=== PATIENT | male | born 1985 | race Hispanic/Latino ===

== ENCOUNTER 2017-06-14 23:03 | Inpatient (IN) | payer BC ==
[2017-06-15] MEDS ORDERED: Sodium Chloride 0.9% 1,000 ML ONE (00:16)
[2017-06-15] MEDS ORDERED: Sodium Chloride 0.9% 1,000 ML IV ONE ×2 (00:19→00:20)
[2017-06-15] MEDS ORDERED: Iohexol 240 (50 ml) PO ONE (00:21)
--- NOTE | 2017-06-15 00:26 | C.PDOC ---
History Of Present Illness 31 year old male presents to the emergency department with complaints of abdominal pain persisting for the past four days. Patient was seen by his PMD, Dr. Bar and was sent to the ED to rule out possible appendicitis. Patient confirms nausea and vomiting. Patient states that his last bowel movement was three days ago. Chief Complaint (Nursing): Abdominal Pain History Per: Patient History/Exam Limitations: no limitations Onset/Duration Of Symptoms: Days (4) Current Symptoms Are (Timing): Still Present Associated Symptoms: Nausea, Vomiting Last Bowel Movement: Days Ago (3) Past Medical History Reviewed: Historical Data, Nursing Documentation, Vital Signs Vital Signs: Last Vital Signs Temp 99.1 F 06/15/17 04:53 Pulse 108 H 06/15/17 04:53 Resp 18 06/15/17 04:53 BP 117/72 06/15/17 04:53 Pulse Ox 100 06/15/17 04:53 - Medical History PMH: No Chronic Diseases Surgical History: No Surg Hx Family History: States: No Known Family Hx - Social History Hx Alcohol Use: Yes Hx Substance Use: No - Immunization History Hx Tetanus Toxoid Vaccination: Yes Hx Influenza Vaccination: Yes Hx Pneumococcal Vaccination: No Review Of Systems Except As Marked, All Systems Reviewed And Found Negative. Gastrointestinal: Positive for: Nausea, Vomiting, Abdominal Pain Physical Exam - Physical Exam Appears: Non-toxic, In Acute Distress (mild) Cardiovascular: Rhythm Regular Respiratory: Normal Breath Sounds Gastrointestinal/Abdominal: Soft, Tenderness (to RUQ, mild tenderness to LUQ, no tenderness to RLQ. ), No Guarding, No Rebound ED Course And Treatment - Laboratory Results Result Diagrams: 06/15/17 00:15 06/15/17 00:15 O2 Sat by Pulse Oximetry: 98 (RA) Pulse Ox Interpretation: Normal Medical Decision Making Medical Decision Making: Plan: CT Abdomen and Pelvis CMP Lipase Bentyl 20mg IM Omnipaque 50ml PO NaCl IV Fluids Zofran 4mg IVP Urinalysis Disposition Discussed With : Celestino Bar Doctor Will See Patient In The: Hospital Counseled Patient/Family Regarding: Diagnosis - Disposition Referrals: Celestino Bar MD [Primary Care Provider] - Disposition: HOSPITALIZED Disposition Time: 05:48 Condition: STABLE Forms: [facility] ([place]) - POA Present On Arrival: None - Clinical Impression Clinical Impression: Abdominal pain, Gall bladder disease - Scribe Statement The provider has reviewed the documentation as recorded by the Scribe (Kaveh Montesinos) Provider Attestation: All medical record entries made by the Scribe were at my direction and personally dictated by me. I have reviewed the chart and agree that the record accurately reflects my personal performance of the history, physical exam, medical decision making, and the department course for this patient. I have also personally directed, reviewed, and agree with the discharge instructions and disposition.
[2017-06-15] MEDS ORDERED: Iohexol 240 (50 ml) ONE (00:31)
[2017-06-15 00:32] LABS: ALB/GLOB RATIO 1.4 (1.0-2.1); BLOOD UREA NITROGEN 10 mg/dL (9-20); CALCIUM 9.1 mg/dl (8.6-10.4); GFR AFRICAN-AMERICAN > 60; GFR NON-AFRICAN AMERICAN > 60; LIPASE 317 U/L (23-300)
[2017-06-15 00:38] LABS: URINE BACTERIA RARE (<OCC); URINE BILIRUBIN 1+ (NEGATIVE); URINE CLARITY Hazy (Clear); URINE COLOR Amber (YELLOW); URINE GLUCOSE (UA) NORMAL (Normal); URINE LEUKOCYTE ESTERASE NEG Leu/uL (Negative); URINE PROTEIN 2+ mg/dL (NEGATIVE)
[2017-06-15 00:39] LABS: URINE BLOOD NEGATIVE (NEGATIVE)
[2017-06-15 00:49] LABS: ALT/SGPT 3997 U/L (21-72); AST/SGOT 5066 U/L (17-59)
[2017-06-15] MEDS ORDERED: Iodixanol 320 MG/ML 100 ML BOTTLE IV ONE (01:25)
[2017-06-15 01:55] LABS: BASO % 0.2 % (0.0-2.0); EOS % 0.4 % (0.0-4.0); HEMOGLOBIN 17.5 g/dL (12.0-18.0); LYMPH # 0.6 K/uL (1.0-4.3); LYMPH % 5.5 % (20.0-40.0); MEAN CELL VOLUME 92.5 fL (80.0-94.0); MEAN CORPUSCULAR HEMOGLOBIN 32.2 pg (27.0-31.0); MEAN CORPUSCULAR HGB CONC 34.8 g/dL (33.0-37.0); MEAN PLATELET VOLUME 8.2 fL (7.2-11.7); MONO # 0.1 K/uL (0.0-0.8); MONO % 1.4 % (0.0-10.0); NEUT # 9.6 K/uL (1.8-7.0); NEUT % 92.5 % (50.0-75.0); NRBC % 0.2 % (0.0-2.0); PLATELET COUNT 104 K/uL (130-400); RBC 5.44 Mil/uL (4.40-5.90); RED CELL DISTRIBUTION WIDTH 12.9 % (11.5-14.5); WHITE BLOOD COUNT 10.4 K/uL (4.8-10.8)
[2017-06-15 01:56] LABS: LYMPHOCYTE 7 % (20-40); MONOCYTE 5 % (0-10); NEUTROPHIL 88 % (50-75); PLATELET ESTIMATE SLIGHTLY DECREASED (NORMAL); TOTAL CELLS COUNTED 100
--- NOTE | 2017-06-15 04:09 | CT ---
EXAM: CT Abdomen and Pelvis With Intravenous Contrast CLINICAL HISTORY: 31 years old, male; Pain; Abdominal pain; Additional info: Abd pain TECHNIQUE: Axial computed tomography images of the abdomen and pelvis with intravenous contrast. All CT scans at this facility use one or more dose reduction techniques, viz.: automated exposure control; ma/kV adjustment per patient size (including targeted exams where dose is matched to indication; i.e. head); or iterative reconstruction technique. Coronal and sagittal reformatted images were created and reviewed. CONTRAST: 100 mL of [id number] administered intravenously. COMPARISON: No relevant prior studies available. FINDINGS: Lung bases: No acute findings. ABDOMEN: Liver: Fatty infiltration. Gallbladder and bile ducts: No calcified gallstones. Gallbladder wall thickening. No significant ductal dilation. Pancreas: No ductal dilation. No mass. Spleen: No splenomegaly. Adrenals: No mass. Kidneys and ureters: No mass. No hydronephrosis. Stomach and bowel: Few segmental areas of mild mural thickening vs underdistention of large bowel. No associated inflammatory stranding. No obstruction. PELVIS: Appendix: Normal caliber. No inflammation. Bladder: Unremarkable. Reproductive: Unremarkable as visualized. ABDOMEN and PELVIS: Intraperitoneal space: No significant fluid collection. No free air. Bones/joints: Chronic L5 pars defects with anterolisthesis. Mild degenerative changes of spine. No acute fracture. Soft tissues: Minimal right gynecomastia. Vasculature: Unremarkable. No aneurysm. Lymph nodes: No pathologically enlarged lymph nodes. IMPRESSION: 1. Gallbladder wall thickening. Recommend ultrasound. 2. Mild colitis versus underdistention. Clinical correlation is needed. 3. Incidental/non-acute findings are described above.
[2017-06-15 06:24] LABS: BARBITURATES, UR NEGATIVE (NEGATIVE); BENZODIAZEPINES, UR NEGATIVE (NEGATIVE); OPIATES, UR NEGATIVE (NEGATIVE); PHENCYCLIDINE, UR NEGATIVE (NEGATIVE)
--- NOTE | 2017-06-15 06:54 | US ---
EXAM: US Abdomen Limited, Right Upper Quadrant CLINICAL HISTORY: 31 years old, male; Pain; Abdominal pain; Epigastric; Additional info: Ruq abd pain TECHNIQUE: Real-time ultrasound of the right upper quadrant with image documentation. COMPARISON: CT - ABD PELVIS PO IV CONTRAST 2017-06-15 02:55 FINDINGS: Liver: Fatty infiltration. No mass. No intrahepatic ductal dilatation. Gallbladder: No gallstones. 0.6 cm wall thickness. Trace pericholecystic fluid. Positive Watson's sign. Common bile duct: No dilatation. No stones. Pancreas: Unremarkable as visualized. Right kidney: Normal echogenicity. No hydronephrosis. IMPRESSION: 1. Gallbladder wall thickening with positive Watson's sign. Clinical correlation is needed. 2. Incidental/non-acute findings are described above.
[2017-06-15] MEDS: Folic Acid 1 MG, Thiamine 100 MG, Multivitamin (MVI) 10 ML in Dextrose 5% In Water 1,00... IV SCH ×2 (06:55→22:10)
[2017-06-15] MEDS: Dextrose 5%/0.45% NS 1,000 ML IV SCH (22:42)
--- NOTE | 2017-06-16 01:18 | CON ---
DATE: PSYCHIATRIC CONSULTATION CHIEF COMPLAINT AND REASON FOR CONSULTATION: The patient was referred to Dr. Bar as the patient has a history of alcoholism. The patient reports that he was drinking 7 day alcohol binge. HISTORY OF PRESENT ILLNESS: This is a case of 31-year-old male of [place] descent. The patient came to the emergency room complaining of abdominal pain. The patient was referred by Dr. Bar for possible appendicitis. He was having nausea and vomiting. 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 He states that he took some 7 days off and he started to drink and he was not eating. The patient was admitted here also because of possible gallbladder disease. The patient had some tests done, which had an ultrasound of the abdomen that showed the following findings: 1. Gallbladder wall thickening with positive Watson sign as well as CAT scan of the abdomen showed the following findings. 2. Gallbladder wall thickening as well as mild colitis. The patient was seen today. He reports the pain was much better and was regretful that he drank too much. He states that he will not drink again, and he said he was not drinking for two years. PAST PSYCHIATRIC HISTORY: Denies any. PAST MEDICAL HISTORY: No active medical problems. ALLERGIES: NO KNOWN ALLERGIES. DRUG AND ALCOHOL HISTORY: He stated that he has history of drinking off and on, but was sober for 2 years. PSYCHOSOCIAL HISTORY: The patient owns a gym. MEDICATIONS: List of current medications include Librium 50 mg p.o. every 4 hours p.r.n. as well as folic acid, multivitamins. PHYSICAL EXAMINATION: VITAL SIGNS: Temperature 98, pulse 106, blood pressure 128/95, respirations 18, oxygen saturation 98%. LABORATORY DATA: Review of his labs. The patient has markedly elevated liver function tests. Total bilirubin is 7.4, AST is 5066 and ALT is 3997. Total creatinine kinase is 257. Urinalysis, positive for protein, +1 for bilirubin. Urine drug screen is negative. BAL was not done. REVIEW OF SYSTEMS: GENERAL: He is alert and oriented x3, seen in his room. Seems to be not in pain, not in acute respiratory distress. He was seen at 9 a.m. in the emergency room. SKIN: No pruritus. HEENT: No headaches. No dizziness. NECK: Supple. RESPIRATORY: No dyspnea. CARDIOVASCULAR: No chest pain. GASTROINTESTINAL: The patient is having no nausea, no vomiting. He said his abdominal pain is much better. EXTREMITIES: No tremors. MUSCULOSKELETAL: Feels weak. NEUROLOGIC: Alert and oriented x3. GENITOURINARY: No urinary problems. MENTAL STATUS EXAMINATION: Well developed male. Muscular built. Oriented x3. Mood is anxious at times. Affect is reactive. Speech is spontaneous. Thought process is coherent. Thought content, no overt psychosis or suicidal ideation. Attention and memory seemed to be fair. Insight and judgment fair. Impulse control is fair. IMPRESSION: History of alcohol abuse as well as gallbladder disease, rule out pancreatitis. PLAN AND RECOMMENDATIONS: The patient is seen. Medications reviewed. We will continue the Librium 50 mg every 4 hours p.r.n. Continue present management as ordered. Continue treatment plan as outlined. The patient was advised to stay sober from alcohol. Oliver Day MD MTDVladislav
[2017-06-16 08:13] LABS: INR 2.9
[2017-06-16 08:22] LABS: PROTHROMBIN TIME 31.7 SECONDS (9.7-12.2)
[2017-06-16 08:27] LABS: ALB/GLOB RATIO 1.3 (1.0-2.1); ALBUMIN 3.2 g/dL (3.5-5.0); BLOOD UREA NITROGEN 13 mg/dL (9-20); GFR AFRICAN-AMERICAN > 60; GFR NON-AFRICAN AMERICAN > 60
[2017-06-16] MEDS: Folic Acid 1 MG, Thiamine 100 MG, Multivitamin (MVI) 10 ML in Dextrose 5% In Water 1,00... IV SCH (08:27)
[2017-06-16] MEDS: Dextrose 5%/0.45% NS 1,000 ML IV SCH ×3 (08:28→21:47)
[2017-06-16 08:58] LABS: ALT/SGPT 10907 U/L (21-72)
[2017-06-16 09:22] LABS: AST/SGOT 14254 U/L (17-59)
--- NOTE | 2017-06-16 10:01 | HP ---
CHIEF COMPLAINT: Abdominal pain, weakness, and chest wall pain. HISTORY OF PRESENT ILLNESS: This is a young 31-year-old white male, who is an alcoholic. He drinks largely. He has been anxious and depressed, and he has been drinking. He has been taking some unknown anxiety and sleeping medication prescribed to him by a psychiatrist. young, healthy male with no limitation in activities of daily living with no past medical history, but he was drinking for last 1 to 2 weeks in large quantity over and over. Along with that, the patient had generalized weakness, tiredness, anorexia, malaise, and fatigue. He was having palpitations, weakness, dizziness, and he was complaining to me with abdominal pain in right lower quadrant, epigastric area, in left lower chest wall. Along with that, he had nausea, no vomiting. He denies any diarrhea. He denies any hemoptysis, melena, hematochezia. He denies any hematuria, pyuria. He denies any sneezing, itchy eyes, itchy nose. He denies any cough, sore throat. He denies any history of hepatitis C. He denies any history of trauma, fall, loss of consciousness, and no history of seizure like activity. PAST MEDICAL HISTORY: Nothing significant. SOCIAL HISTORY: He smokes, he drinks. He denies drugs. CURRENT MEDICATIONS: Unknown anxiety medicine. ALLERGIES: UNKNOWN ALLERGIES. PHYSICAL EXAMINATION: GENERAL: A young male, in distress with weakness. VITAL SIGNS: Blood pressure 128/95, pulse 106, respiratory rate 18, temperature 98. SKIN: Dry, poor turgor. HEENT: Atraumatic and normocephalic. Negative pallor. Negative jaundice. Extraocular movements are intact. NECK: Supple. No JVD. No lymph nodes. No thyromegaly. No carotid bruits. CHEST WALL: Bilateral symmetrical expansion. No masses. . LUNGS: Clear. No rales, no rhonchi. CVS: S1 and S2 regular. No heave noted. ABDOMEN: Soft and nontender. Bowel sounds are present. There is right lower quadrant tenderness. No guarding, no rebound, no rigidity. RECTAL AND PELVIC: Negative. EXTREMITIES: No clubbing, cyanosis, or edema. CENTRAL NERVOUS SYSTEM: Awake, alert and oriented x3. ASSESSMENT: 1. Acute hepatitis, most likely, it is alcohol induced hepatitis. It could be a combination of alcohol induced plus medications. 2. Anxiety and depression. 3. Thrombocytopenia. PLAN: Admit. Detailed orders written. Seen and examined. Celestino Bar MD
--- NOTE | 2017-06-16 11:16 | PN ---
DATE: 06/16/2017 LOCATION: 370, bed B. SUBJECTIVE: This is a 31-year-old male seen and examined in rounds early this morning without any reported active bleeding, with less abdominal distention and pain. The entire chart is reviewed including but not limited to the most recent lab and radiology study results, current and the previous medication list, current and the previous medical events. Case discussed with the staff in the floor and the patient tolerated some oral intake, but no reported chest pain, palpitations, or evidence of active bleeding. CAT scan of the abdomen and pelvis as well as ultrasound report seen. Today's lab is still pending, but yesterday's lab showed excessive increase of ALT, but more increase of AST and elevated total creatine kinase, lipase was 317. PHYSICAL EXAMINATION: GENERAL: A 31-year-old male. VITAL SIGNS: Temperature of 99.3, heart rate 84, respiratory rate 20 to 22, blood pressure of 136/78. HEENT: Mildly pale, dry, oral mucous membranes. Nonicteric sclerae. LUNGS: Few scattered crepitations. Decreased air entry at bases. HEART: Positive S1 and S2. ABDOMEN: Soft, with mild generalized tenderness. No mass or organomegaly. No rebound tenderness or guarding. EXTREMITIES: Without edema, clubbing, or cyanosis. NEUROLOGIC: No reported new neurological deficits, sensory or motor. The patient was seen by the psychiatric consult, and his recommendation is appreciated. IMPRESSION: 1. Alcoholism. 2. Acute alcoholic hepatitis. 3. Acute alcoholic pancreatitis. 4. Re-exacerbation of peptic ulcer disease. SUGGESTION: 1. Continue current management. 2. Follow up on liver function test with hepatitis profile. 3. Anti-reflux measures. 4. Proton pump inhibitors. 5. Further evaluation and recommendation to follow. Luis Manuel Mcginnis MD
--- NOTE | 2017-06-16 15:24 | NM ---
PROCEDURE: Nuclear Medicine Hepatobiliary Scan HISTORY: cholecystitis COMPARISON: June 14, 2017. Abdominal ultrasound TECHNIQUE: 7.9 mCi of technetium 99m Mebrofenin was administered intravenously. Planar images of the abdomen were obtained at 5 min intervals to 60 mins. Delayed images were also obtained. FINDINGS: LIVER: Timely and homogenous uptake. COMMON BILE DUCT: identified at 25 mins. GALLBLADDER: identified at 25 mins. SMALL BOWEL: Identified at 65 mins. IMPRESSION: Normal Hepatobiliary Scan. The cystic duct is patent.
--- NOTE | 2017-06-17 08:35 | CON ---
DATE: 06/15/2017 REQUESTING PHYSICIAN: Celestino Bar MD I was called for a GI consultation by the admitting medical team as well as by the ER staff. The patient is seen and fully examined in the emergency room on 06/15/2017. The entire chart is reviewed including but not limited to the most recent lab and radiology study results, current and the previous medication list, current and the previous medical events, allergies to medication list, as well as all the available current and the previous medical records. Case discussed at length with the ER MD as well as the admitting medical team. This is a 31-year-old male who was admitted to the hospital through the emergency room due to severe abdominal pain for the last 3-4 days with persistent nausea and recurrent vomiting as well as dyspepsia with constipation, last bowel movement reported to be about 3-4 days ago. It has to be mentioned that the patient had been excessively drinking alcohol for the last 7-10 days on a daily basis. PAST MEDICAL HISTORY: Including mainly: 1. Alcoholism. 2. Peptic ulcer disease. FAMILY HISTORY: Unrelated to specific GI disorder. CURRENT MEDICATIONS: Medication list post admission reviewed. ALLERGIES TO MEDICATIONS: UNCLEAR. SOCIAL HISTORY: Positive for alcohol intake and cigarette smoking on and off. Initial blood workup showed thrombocytopenia of 104. Excessive increase of AST and ALT. Initial CAT scan of the abdomen and pelvis done, report is seen. PHYSICAL EXAMINATION: GENERAL: A 31-year-old male, appears to be somewhat awake, alert, oriented, complaining of abdominal pain. VITAL SIGNS: Temperature of 99.1, pulse of 104, respiratory rate 18 to 20, blood pressure 122/74. HEENT: Showed dry oral mucoid membranes. Bilateral icteric sclerae. LYMPH NODES: No lymphadenitis or lymphadenopathy. LUNGS: Clear. Breathing sounds are present bilaterally. HEART: Positive S1 and S2. ABDOMEN: Soft with slight distention and diffuse tenderness. No mass or organomegaly. No rebound tenderness or guarding. EXTREMITIES: Without significant edema, clubbing, or cyanosis. NEUROLOGIC: No reported new neurological deficits, sensory or motor. No reported focal deficits. It has to be mentioned that the patient's lipase and amylase levels were found to be elevated at the time of the admission. IMPRESSION: 1. Alcoholism. 2. Acute chemical hepatitis, most likely secondary to acute alcoholic hepatitis. 3. Acute pancreatitis secondary to alcoholism. 4. Re-exacerbation of peptic ulcer disease. 5. Excessive elevation of AST and ALT secondary to above. SUGGESTIONS: 1. Agree with your plan. 2. Rehydration. 3. Zofran IV. 4. Proton pump inhibitors. 5. Keep the patient n.p.o. for now. 6. Repeat serum lipase and amylase levels as well as liver function tests at a.m. 7. Hepatitis profile. 8. Monospot. 9. No aggressive GI workup in the meantime and close observation to follow. 10. I have been suggested the patient to be admitted to the Intensive Care Unit, still awaiting Customer Quality Specialist for full evaluation of this patient. 11. Case is to be discussed with the admitting MD. Thank you for letting me participate in your patient's case management. Further recommendation to follow. Luis Manuel Mcginnis MD
[2017-06-17 08:58] VITALS: RESP 20
--- NOTE | 2017-06-17 09:02 | CP.PCM.PN ---
Subjective - Date & Time of Evaluation Date of Evaluation: 06/16/17 Time of Evaluation: 18:00 - Subjective Subjective: PT SEEN AND EXAMINED, IS IMPROVING, LIVER ENZYMES ARE GETTING BETTER, PT IS LESS ANXIOUS AND FELLING BETTER Objective - Vital Signs/Intake and Output Vital Signs (last 24 hours): Temp Pulse Resp BP Pulse Ox 98.2 F 76 20 131/82 96 06/17/17 08:56 06/17/17 08:56 06/17/17 08:56 06/17/17 08:56 06/17/17 08:56 Intake and Output: 06/17/17 06/17/17 06:59 18:59 Intake Total 940 Balance 940 - Medications Medications: Current Medications Chlordiazepoxide (Librium) 50 mg PO Q4H PRN PRN Reason: Symptoms of alcohol withdrawl Last Admin: 06/16/17 09:54 Dose: 50 mg Folic Acid 1 mg/ Thiamine HCl 100 mg/ Multivitamins/Vitamin C 10 ml/ Dextrose 1 ,011.2 mls @ 80 mls/hr IV Q24H [facility] Last Admin: 06/16/17 08:27 Dose: 80 mls/hr Dextrose/Sodium Chloride (Dextrose 5%/0.45% Ns 1000 Ml) 1,000 mls @ 100 mls/hr IV .Q10H [facility] Last Admin: 06/16/17 21:47 Dose: 100 mls/hr Nicotine (Nicoderm Cq) 1 patch TD DAILY [facility] Last Admin: 06/16/17 09:54 Dose: 1 patch Phytonadione (Vitamin K Tab) 5 mg PO DAILY [facility] Stop: 06/19/17 11:46 Last Admin: 06/16/17 15:53 Dose: 5 mg Pneumococcal Polyvalent Vaccine (Pneumovax 23 Vaccine) 0.5 ml IM .ONCE ONE Stop: 06/18/17 10:01 - Labs Labs: 06/15/17 00:15 06/16/17 08:01 PT 31.7 SECONDS (9.7-12.2) H* 06/16/17 08:01 INR 2.9 06/16/17 08:01 APTT 34 SECONDS (21-34) 06/16/17 08:01 - Constitutional Appears: No Acute Distress - Head Exam Head Exam: ATRAUMATIC, NORMAL INSPECTION, NORMOCEPHALIC - Eye Exam Eye Exam: EOMI, Normal appearance, PERRL Pupil Exam: NORMAL ACCOMODATION, PERRL - Respiratory Exam Respiratory Exam: Clear to Ausculation Bilateral, NORMAL BREATHING PATTERN - Cardiovascular Exam Cardiovascular Exam: REGULAR RHYTHM, +S1, +S2. absent: Murmur - GI/Abdominal Exam GI & Abdominal Exam: Soft, Normal Bowel Sounds. absent: Tenderness Assessment and Plan (1) Abdominal pain Status: Acute (2) Acute alcoholic hepatitis Status: Acute
--- NOTE | 2017-06-17 09:02 | CP.PCM.PN ---
Subjective - Date & Time of Evaluation Date of Evaluation: 06/17/17 Time of Evaluation: 18:00 - Subjective Subjective: PT SEEN AND EXAMINED, IS DOING WELL,LFTS ARE IMPROVING Objective - Vital Signs/Intake and Output Vital Signs (last 24 hours): Temp Pulse Resp BP Pulse Ox 98.2 F 76 20 131/82 96 06/17/17 08:56 06/17/17 08:56 06/17/17 08:56 06/17/17 08:56 06/17/17 08:56 Intake and Output: 06/17/17 06/17/17 06:59 18:59 Intake Total 940 Balance 940 - Medications Medications: Current Medications Chlordiazepoxide (Librium) 50 mg PO Q4H PRN PRN Reason: Symptoms of alcohol withdrawl Last Admin: 06/16/17 09:54 Dose: 50 mg Folic Acid 1 mg/ Thiamine HCl 100 mg/ Multivitamins/Vitamin C 10 ml/ Dextrose 1 ,011.2 mls @ 80 mls/hr IV Q24H [facility] Last Admin: 06/16/17 08:27 Dose: 80 mls/hr Dextrose/Sodium Chloride (Dextrose 5%/0.45% Ns 1000 Ml) 1,000 mls @ 100 mls/hr IV .Q10H [facility] Last Admin: 06/16/17 21:47 Dose: 100 mls/hr Nicotine (Nicoderm Cq) 1 patch TD DAILY [facility] Last Admin: 06/16/17 09:54 Dose: 1 patch Phytonadione (Vitamin K Tab) 5 mg PO DAILY [facility] Stop: 06/19/17 11:46 Last Admin: 06/16/17 15:53 Dose: 5 mg Pneumococcal Polyvalent Vaccine (Pneumovax 23 Vaccine) 0.5 ml IM .ONCE ONE Stop: 06/18/17 10:01 - Labs Labs: 06/15/17 00:15 06/16/17 08:01 PT 31.7 SECONDS (9.7-12.2) H* 06/16/17 08:01 INR 2.9 06/16/17 08:01 APTT 34 SECONDS (21-34) 06/16/17 08:01 - Constitutional Appears: No Acute Distress - Head Exam Head Exam: ATRAUMATIC, NORMAL INSPECTION, NORMOCEPHALIC - Eye Exam Eye Exam: EOMI, Normal appearance, PERRL Pupil Exam: NORMAL ACCOMODATION, PERRL - Respiratory Exam Respiratory Exam: Clear to Ausculation Bilateral, NORMAL BREATHING PATTERN - Cardiovascular Exam Cardiovascular Exam: REGULAR RHYTHM, +S1, +S2. absent: Murmur - GI/Abdominal Exam GI & Abdominal Exam: Soft, Normal Bowel Sounds. absent: Tenderness Assessment and Plan (1) Acute alcoholic hepatitis Assessment & Plan: LFTS ARE GOING DOWN Status: Acute (2) Abdominal pain Status: Acute
[2017-06-17] MEDS: Folic Acid 1 MG, Thiamine 100 MG, Multivitamin (MVI) 10 ML in Dextrose 5% In Water 1,00... IV SCH (10:03)
[2017-06-17 11:39] LABS: HEMOGLOBIN 15.7 g/dL (12.0-18.0); MEAN CELL VOLUME 91.5 fL (80.0-94.0); MEAN CORPUSCULAR HEMOGLOBIN 32.2 pg (27.0-31.0); MEAN CORPUSCULAR HGB CONC 35.2 g/dL (33.0-37.0); MEAN PLATELET VOLUME 7.8 fL (7.2-11.7); RBC 4.87 Mil/uL (4.40-5.90); RED CELL DISTRIBUTION WIDTH 13.1 % (11.5-14.5)
[2017-06-17 11:40] LABS: WHITE BLOOD COUNT 2.9 K/uL (4.8-10.8)
[2017-06-17 11:50] LABS: ALB/GLOB RATIO 1.1 (1.0-2.1); ALBUMIN 2.9 g/dL (3.5-5.0); BLOOD UREA NITROGEN 11 mg/dL (9-20); CALCIUM 8.2 mg/dl (8.6-10.4); GFR AFRICAN-AMERICAN > 60; GFR NON-AFRICAN AMERICAN > 60
[2017-06-17] MEDS ORDERED: POLYETHYLENE GLYCOL 3350 17 GM/Dose PACKET PO ONE (13:00)
[2017-06-17 13:03] LABS: ALT/SGPT 5691 U/L (21-72); AST/SGOT 3123 U/L (17-59)
--- NOTE | 2017-06-17 16:12 | PN ---
DATE: 06/17/2017 LOCATION: 370, bed B. SUBJECTIVE: This is a 31-year-old male seen and examined early in rounds today without significant clinical changes or reported active bleeding, but with jaundice. He was found to have subsequent elevation of liver function test with less abdominal pain. It has to be mentioned that the most recent radiology study results from biliary scan done yesterday was reported to be normal and today's lab is still pending. However, as per yesterday's lab, the patient's PT elevated to 31.7 with excessive increase of AST to 14, 254, ALT 10,907 with total bilirubin 7.2 with total creatine kinase to 257, low albumin 2.3. Today's lab is still pending, and urine screening toxicology test reported to be negative. However, hepatitis profile results are still pending. PHYSICAL EXAMINATION: GENERAL: A 31-year-old male, awake, alert, and oriented with generalized jaundice. VITAL SIGNS: Afebrile with pulse of 72, respiratory rate 20 to 22, blood pressure of 136/80. HEENT: Showed dry oral mucous membrane, bilateral icteric sclerae. LUNGS: Clear. Breathing sounds are present bilaterally. HEART: Positive S1 and S2. ABDOMEN: Soft with mild generalized tenderness. No mass or organomegaly. No rebound tenderness or guarding. EXTREMITIES: Without significant clubbing, cyanosis, or edema. NEUROLOGIC: No reported new neurological deficits, sensory or motor. No reported new focal deficits. IMPRESSION: 1. Alcoholism with evidence of acute alcoholic hepatitis. 2. Acute alcoholic pancreatitis. 3. Re-exacerbation of peptic ulcer disease. SUGGESTION: 1. Continue current management. 2. Rehydration. 3. Due to the elevated total bilirubin, we will get antibody. 4. If there is significant improvement of the patient's liver enzymes, the patient may be transferred to [facility] for further full workup and MRCP to be scheduled. 5. Repeat serum lipase and amylase level. 6. Follow up on viral hepatitis profile, ordered before. 7. Ammonia level. 8. Further recommendation to follow. Luis Manuel Mcginnis MD [facility] # [id number]
[2017-06-17] MEDS ORDERED: Potassium Chloride 20 mEq/15 ml LIQ UD PO STA (17:59)
--- NOTE | 2017-06-17 19:39 | PN ---
DATE: 06/17/2017 SUBJECTIVE: The patient is seen with significant other. The patient is doing much better and also noted a sclera that seems to be icteric. The patient is not complaining of abdominal pain. He is eating well. The patient made aware of his lab result. The patient's AST and ALT are markedly elevated, but much better today. The last levels for AST is 3123 and ALT is 5691. His total bilirubin is still 7.5. Ammonia is 37. The patient is not having any pruritus and was concerned about the icteric sclera. The patient still needs that he wants a 7-day drinking binge. The patient seems to be very remorseful of what he did. The patient also had hepatobiliary scan, nuclear medicine, was done and showed normal hepatobiliary stent. Cystic duct is patent. The patent advised to stop drinking. VITAL SIGNS: Temperature is 98.2, pulse rate is 76, blood pressure is 131/82, respirations 20, oxygen saturation 96%. REVIEW OF SYSTEMS: GENERAL: The patient is alert and oriented x3, seen at this time with his significant other in his room. Talkative. Not confused. SKIN: No pruritus. Not clear. Icteric. HEENT: His sclera is icteric. No headache. NECK: Supple. RESPIRATORY: No dyspnea. CARDIOVASCULAR: No chest pain. GASTROINTESTINAL: The patient is able to eat. No nausea, no vomiting. EXTREMITIES: Moving extremities and ambulatory. MUSCULOSKELETAL: Feels weak. NEUROLOGIC: Alert and oriented x3. GENITOURINARY: No urinary problems. MENTAL STATUS EXAMINATION: Very muscular male, looks stated age. Seen in his room, calm. Affect is reactive. Speech is spontaneous. Thought process is coherent. Thought content, no overt psychosis. No suicidal or homicidal ideation. The patient seems to be remorseful of his drinking patten. He said he will stop drinking. No psychosis or suicidal or homicidal ideation. No signs of alcohol withdrawal. Attention and memory seemed to be fair. Insight and judgment improving. Impulse control is fair at this time. IMPRESSION: History of alcohol abuse as well as gallbladder disease, pancreatitis. PLAN AND RECOMMENDATIONS: The patient is seen. Medications reviewed. In view of his elevated liver enzymes, we will discontinue the Librium as the Librium is hard to metabolize and we will change the patient to Ativan 1 mg p.o every 4 p.r.n. for anxiety and alcohol withdrawal. Ativan is better for the patient with compromised liver function. Continue treatment plan as outlined. The patient is talkative at this time and was advised to seek outpatient treatment for his alcohol once discharged. Oliver Day MD [facility]
[2017-06-17] MEDS: Dextrose 5%/0.45% NS 1,000 ML IV SCH (22:56)
[2017-06-18] MEDS: Dextrose 5%/0.45% NS 1,000 ML IV SCH ×2 (00:15→11:44)
[2017-06-18] MEDS ORDERED: Phytonadione 10 mg/ml Inj (Adult) SC STA (07:09)
[2017-06-18] MEDS ORDERED: Phytonadione 10 mg/ml Inj (Adult) SC ONE (07:30)
[2017-06-18 08:01] LABS: HEMOGLOBIN 15.9 g/dL (12.0-18.0); MEAN CORPUSCULAR HEMOGLOBIN 32.6 pg (27.0-31.0); MEAN CORPUSCULAR HGB CONC 35.1 g/dL (33.0-37.0); MEAN PLATELET VOLUME 7.7 fL (7.2-11.7); RBC 4.89 Mil/uL (4.40-5.90); RED CELL DISTRIBUTION WIDTH 13.2 % (11.5-14.5)
[2017-06-18] MEDS: Folic Acid 1 MG, Thiamine 100 MG, Multivitamin (MVI) 10 ML in Dextrose 5% In Water 1,00... IV SCH (08:18)
[2017-06-18 08:31] LABS: ALB/GLOB RATIO 1.1 (1.0-2.1); ALBUMIN 3.1 g/dL (3.5-5.0); BLOOD UREA NITROGEN 9 mg/dL (9-20); CALCIUM 7.9 mg/dl (8.6-10.4); GFR AFRICAN-AMERICAN > 60; GFR NON-AFRICAN AMERICAN > 60
[2017-06-18 08:45] LABS: AST/SGOT 1216 U/L (17-59)
[2017-06-18 08:54] LABS: ALT/SGPT 4119 U/L (21-72)
[2017-06-18 09:35] LABS: INR 1.6; PROTHROMBIN TIME 17.5 SECONDS (9.7-12.2)
[2017-06-18] MEDS ORDERED: Pneumococcal 23-Valent Vaccine IM ONE (10:00)
[2017-06-18 11:50] LABS: BASO % 0.8 % (0.0-2.0); EOS # 0.4 K/uL (0.0-0.7); EOS % 9.2 % (0.0-4.0); LYMPH # 1.1 K/uL (1.0-4.3); LYMPH % 28.3 % (20.0-40.0); MONO # 0.5 K/uL (0.0-0.8); MONO % 11.9 % (0.0-10.0); NEUT % 49.8 % (50.0-75.0); NRBC % 0.1 % (0.0-2.0)
--- NOTE | 2017-06-18 11:55 | PN ---
DATE: 06/18/2017 LOCATION: 370, bed B SUBJECTIVE: This is a 31-year-old male seen and examined in rounds without significant clinical changes, complaining of mild generalized weakness and malaise, with less appetite, but no reported active bleeding. No chest pain or palpitations and no reported chills or fever. The entire chart is reviewed including but not limited to the most recent lab and radiology study results, current and the previous medication list, current and the previous medical events. Case discussed with the staff at length in the floor. Today's lab results still pending, but yesterday's lab showed white blood cells of 2.9, with normal hemoglobin and hematocrit, with potassium 3.3, total bilirubin 7.5, but subsequent improvement of AST to 3123 and ALT 5691, with normal alkaline phosphatase, low albumin, and low total protein. PHYSICAL EXAMINATION: GENERAL: A 31-year-old male. VITAL SIGNS: Afebrile, with pulse of 72, respiratory rate of 20 to 22, blood pressure of 134/80. HEENT: Showed pale, dry, oral mucous membranes. Bilateral icteric sclerae. LUNGS: Few scattered crepitation. Decreased air entry at bases. HEART: Positive S1 and S2. ABDOMEN: Soft, with mid epigastric tenderness. No mass or organomegaly. No rebound tenderness or guarding. EXTREMITIES: Without significant edema, clubbing, or cyanosis, but with mild tenderness indicative of mild muscular tenderness, spasm, and possible myositis. NEUROLOGIC: No reported new neurological deficits, sensory or motor. IMPRESSION: 1. Severe alcoholic hepatitis, mildly improving by biochemical and clinical status. 2. Abnormal liver function tests secondary to above. 3. Jaundice, most likely secondary to above, however, the possibility of obstructive jaundice was raised. 4. Acute pancreatitis, most likely alcohol induced clinically and slightly improving. 5. Coagulopathy due to above. 6. Re-exacerbation of peptic ulcer disease. SUGGESTIONS: 1. Continue current management. 2. Vitamin K subcu to correct any underlying coagulopathy. 3. Dehydration. 4. Repeat serum lipase and amylase level as well as liver function tests at a.m. 5. Further recommendations to follow. Should the patient have increased total bilirubin, then MRCP or possible ERCP to be kept in mind. Luis Manuel Mcginnis MD [facility] # [id number]
--- NOTE | 2017-06-18 15:41 | CP.PCM.PN ---
Subjective - Date & Time of Evaluation Date of Evaluation: 06/18/17 Time of Evaluation: 15:41 - Subjective Subjective: PATIENT WAS ADMITTED FOR ACUTE GI DISEASE SITTING AT THE BEDSIDE WITH FAMILY DENIES ABD PAIN/ CHEST PAIN NO SIGN OF DISTRESS NOTED Objective - Vital Signs/Intake and Output Vital Signs (last 24 hours): Temp Pulse Resp BP Pulse Ox 98.1 F 75 20 130/82 96 06/18/17 07:47 06/18/17 07:47 06/18/17 07:47 06/18/17 07:47 06/18/17 07:47 Intake and Output: 06/18/17 06/18/17 06:59 18:59 Intake Total 1200 1400 Balance 1200 1400 - Medications Medications: Current Medications Docusate Sodium (Colace) 100 mg PO BID [facility] Last Admin: 06/18/17 09:00 Dose: Not Given Folic Acid 1 mg/ Thiamine HCl 100 mg/ Multivitamins/Vitamin C 10 ml/ Dextrose 1 ,011.2 mls @ 80 mls/hr IV Q24H [facility] Last Admin: 06/18/17 08:18 Dose: 80 mls/hr Dextrose/Sodium Chloride (Dextrose 5%/0.45% Ns 1000 Ml) 1,000 mls @ 100 mls/hr IV .Q10H [facility] Last Admin: 06/18/17 11:44 Dose: Not Given Lorazepam (Ativan) 1 mg PO Q4H PRN PRN Reason: Anxiety Nicotine (Nicoderm Cq) 1 patch TD DAILY [facility] Last Admin: 06/18/17 08:59 Dose: 1 patch Phytonadione (Vitamin K Tab) 5 mg PO DAILY [facility] Stop: 06/19/17 11:46 Last Admin: 06/18/17 10:49 Dose: 5 mg - Labs Labs: 06/18/17 07:46 06/18/17 07:46 PT 17.5 SECONDS (9.7-12.2) H D 06/18/17 09:15 INR 1.6 D 06/18/17 09:15 APTT 41 SECONDS (21-34) H D 06/18/17 09:15 Assessment and Plan - Assessment and Plan (Free Text) Assessment: LABS REVIEW LFT'S ELEVATED AND DR BOATENG WILL F/U THE PATIENT AT HIS OFFICE AFEBRILE/ VITALS STABLE DISCUSS WITH DR HERNANDEZ WHO CLEAR FOR DC FOLLOW UP WITH DR HERNANDEZ IN 1-2 WEEKS AT HIS OFFICE ---CALL FOR APPOINTMENT FOLLOW UP WITH DR BOATENG AT HIS OFFICE NEXT WEEK --CALL FOR APPOINTMENT FOR POSS MRCP OUT PATIENT FOLLOW UP WITH DR SCHAFFER AT HIS OFFICE ---CALL FOR APPOINTMENT CONTINUE ALL YOUR HOME MEDICATION NEW PRESCRIPTION GIVEN MULTIVITAMIN THIAMINE VIT C ACTIVITY TOLERATED CALL DR HERNANDEZ OR GO TO THE EMRGENCY ROOM IF SYMPTOMS RETURN OR WORSENING DISCUSS WITH PATIENT WHO AGREE AND VERBALIZED UNDERSTANDING
[2017-06-18 17:22] VITALS: BP 138/84; PULSE 69; TEMP 98.2; O2SAT 98
--- NOTE | 2017-06-18 21:08 | PN ---
DATE: 06/18/2017 SUBJECTIVE: The patient is doing much better. His sclerae are still icteric, but improving. His last lab results, his AST is now 1216 and ALT is 4119. Other than that, he is not exhibiting signs and symptoms of withdrawal. The patient to be discharged and will follow up with Dr. Bar. The patient advised not to drink. VITAL SIGNS: Temperature 98.1, pulse 75, blood pressure 130/82, respirations 20, oxygen saturation is 96%. REVIEW OF SYSTEMS: GENERAL: He is alert and oriented x3, seen in his room. SKIN: No pruritus. HEENT: Mild icteric sclerae. No headache. NECK: Supple. RESPIRATORY: No dyspnea. CARDIOVASCULAR: No chest pain. GASTROINTESTINAL: Eating well. No nausea. No vomiting. EXTREMITIES: The patient is ambulatory. MUSCULOSKELETAL: Weakness improving. NEUROLOGICAL: Alert and oriented x3. GENITOURINARY: No urinary problems. MENTAL STATUS EXAMINATION: Muscular looking male, who looks stated age, oriented x3. Mood is calm. Affect is reactive. Speech is spontaneous. Thought process, coherent. Thought content, wants to go home. No overt psychosis. No suicidal or homicidal ideation. Attention and memory seem to be fair. Insight and judgment fair. Impulse control is fair. IMPRESSION: History of alcohol abuse as well as history of gallbladder disease, rule out pancreatitis. PLAN AND RECOMMENDATION: The patient is seen, meds reviewed. The patient advised not to drink. The patient to follow up with Dr. Bar. Psych muir, he is stable to be discharged to home. He wants to go home today. The patient advised not to drink alcohol. Oliver Day MD
--- NOTE | 2017-06-18 23:18 | CP.PCM.DIS ---
Provider - Provider Date of Admission: 06/15/17 05:49 Attending physician: Celestino Bar MD Primary care physician: Celestino Bar MD Diagnosis - Discharge Diagnosis (1) Abdominal pain Status: Acute (2) Acute alcoholic hepatitis Status: Acute Hospital Course - Lab Results Lab Results: Most Recent Lab Values WBC 4.0 K/uL (4.8-10.8) L 06/18/17 07:46 RBC 4.89 Mil/uL (4.40-5.90) 06/18/17 07:46 Hgb 15.9 g/dL (12.0-18.0) 06/18/17 07:46 Hct 45.4 % (35.0-51.0) 06/18/17 07:46 MCV 93.0 fL (80.0-94.0) 06/18/17 07:46 MCH 32.6 pg (27.0-31.0) H 06/18/17 07:46 MCHC 35.1 g/dL (33.0-37.0) 06/18/17 07:46 RDW 13.2 % (11.5-14.5) 06/18/17 07:46 Plt Count 108 K/uL (130-400) L 06/18/17 07:46 MPV 7.7 fL (7.2-11.7) 06/18/17 07:46 Neut % (Auto) 49.8 % (50.0-75.0) L 06/18/17 07:46 Lymph % (Auto) 28.3 % (20.0-40.0) 06/18/17 07:46 [place] % (Auto) 11.9 % (0.0-10.0) H 06/18/17 07:46 Eos % (Auto) 9.2 % (0.0-4.0) H 06/18/17 07:46 Baso % (Auto) 0.8 % (0.0-2.0) 06/18/17 07:46 Neut # (Auto) 2.0 K/uL (1.8-7.0) 06/18/17 07:46 Lymph # (Auto) 1.1 K/uL (1.0-4.3) 06/18/17 07:46 [place] # (Auto) 0.5 K/uL (0.0-0.8) 06/18/17 07:46 Eos # (Auto) 0.4 K/uL (0.0-0.7) 06/18/17 07:46 Baso # (Auto) 0.0 K/uL (0.0-0.2) 06/18/17 07:46 Neutrophils % (Manual) 88 % (50-75) H 06/15/17 00:15 Lymphocytes % (Manual) 7 % (20-40) L 06/15/17 00:15 Monocytes % (Manual) 5 % (0-10) 06/15/17 00:15 Differential Comment 06/18/17 07:46 Platelet Estimate Slightly decreased (NORMAL) L 06/15/17 00:15 PT 17.5 SECONDS (9.7-12.2) H D 06/18/17 09:15 INR 1.6 D 06/18/17 09:15 APTT 41 SECONDS (21-34) H D 06/18/17 09:15 Sodium 139 mmol/L (132-148) 06/18/17 07:46 Potassium 3.6 mmol/L (3.6-5.2) 06/18/17 07:46 Chloride 104 mmol/L (98-107) 06/18/17 07:46 Carbon Dioxide 25 mmol/L (22-30) 06/18/17 07:46 Anion Gap 13 (10-20) 06/18/17 07:46 BUN 9 mg/dL (9-20) 06/18/17 07:46 Creatinine 0.9 mg/dL (0.8-1.5) 06/18/17 07:46 Est GFR ( Amer) > 60 06/18/17 07:46 Est GFR (Non-Af Amer) > 60 06/18/17 07:46 Random Glucose 83 mg/dL (75-110) 06/18/17 07:46 Calcium 7.9 mg/dl (8.6-10.4) L 06/18/17 07:46 Total Bilirubin 8.5 mg/dL (0.2-1.3) H 06/18/17 07:46 AST 1216 U/L (17-59) H 06/18/17 07:46 ALT 4119 U/L (21-72) H 06/18/17 07:46 Alkaline Phosphatase 131 U/L (38-126) H 06/18/17 07:46 Ammonia 37 umol/L (9-33) H 06/16/17 08:01 Total Creatine Kinase 257 U/L (55-170) H 06/15/17 06:51 Total Protein 5.8 g/dL (6.3-8.3) L 06/18/17 07:46 Albumin 3.1 g/dL (3.5-5.0) L 06/18/17 07:46 Globulin 2.8 gm/dL (2.2-3.9) 06/18/17 07:46 Albumin/Globulin Ratio 1.1 (1.0-2.1) 06/18/17 07:46 Lipase 317 U/L (23-300) H 06/15/17 00:15 Urine Color Kary (YELLOW) 06/15/17 00:15 Urine Clarity Hazy (Clear) 06/15/17 00:15 Urine pH 5.0 (5.0-8.0) 06/15/17 00:15 Ur Specific [place] 1.021 (1.003-1.030) 06/15/17 00:15 Urine Protein 2+ mg/dL (NEGATIVE) H 06/15/17 00:15 Urine Glucose (UA) Normal mg/dL (Normal) 06/15/17 00:15 Urine Ketones Trace mg/dL (NEGATIVE) 06/15/17 00:15 Urine Blood Negative (NEGATIVE) 06/15/17 00:15 Urine Nitrate Negative (NEGATIVE) 06/15/17 00:15 Urine Bilirubin 1+ (NEGATIVE) H 06/15/17 00:15 Urine Urobilinogen 4.0 mg/dL (0.2-1.0) 06/15/17 00:15 Ur Leukocyte Esterase Neg Melissa/uL (Negative) 06/15/17 00:15 Urine WBC (Auto) 7 /hpf (0-5) H 06/15/17 00:15 Urine RBC (Auto) 1 /hpf (0-3) 06/15/17 00:15 Urine Bacteria Rare (<OCC) 06/15/17 00:15 Urine Opiates Screen Negative (NEGATIVE) 06/15/17 06:06 Urine Methadone Screen Negative (NEGATIVE) 06/15/17 06:06 Acetaminophen < 10.0 ug/mL (10.0-30.0) L 06/15/17 06:51 Ur Barbiturates Screen Negative (NEGATIVE) 06/15/17 06:06 Ur Phencyclidine Scrn Negative (NEGATIVE) 06/15/17 06:06 Ur Amphetamines Screen Negative (NEGATIVE) 06/15/17 06:06 U Benzodiazepines Scrn Negative (NEGATIVE) 06/15/17 06:06 U Oth Cocaine Metabols Negative (NEGATIVE) 06/15/17 06:06 U Cannabinoids Screen Negative (NEGATIVE) 06/15/17 06:06 Discharge Exam - Head Exam Head Exam: ATRAUMATIC, NORMAL INSPECTION, NORMOCEPHALIC Discharge Plan - Discharge Medications Prescriptions: Multivitamin [Multivitamins] 1 each PO DAILY 30 Days capsule Thiamine [Vitamin B1 Tab] 100 mg PO DAILY 30 Days tab Ascorbic Acid [Vitamin C] 250 mg PO DAILY 30 Days tab - Follow Up Plan Condition: STABLE Disposition: HOME/ ROUTINE Instructions: Acute Abdomen (Belly Pain), Adult (DC), Ascorbic Acid, Thiamine, Vitamins (Multiple/Oral) Additional Instructions: FOLLOW UP WITH DR BAR IN 1-2 WEEKS AT HIS OFFICE ---CALL FOR APPOINTMENT FOLLOW UP WITH DR LOZA AT HIS OFFICE NEXT WEEK --CALL FOR APPOINTMENT FOR POSS MRCP OUT PATIENT FOLLOW UP WITH DR REGALADO AT HIS OFFICE ---CALL FOR APPOINTMENT CONTINUE ALL YOUR HOME MEDICATION NEW PRESCRIPTION GIVEN MULTIVITAMIN THIAMINE VIT C ACTIVITY TOLERATED CALL DR BAR OR GO TO THE EMRGENCY ROOM IF SYMPTOMS RETURN OR WORSENING Referrals: Oliver Regalado MD [Staff Provider] - Luis Manuel Loza [Staff Provider] - Celestino Bar MD [Primary Care Provider] -
[2017-06-19 08:56] LABS: HEPATITIS B SURFACE AG Negative (NEGATIVE)
[2017-06-19 09:02] LABS: HEPATITIS A IGM NEGATIVE (NEGATIVE); HEPATITIS B CORE AB NEGATIVE (NEGATIVE)
[2017-06-19 09:14] LABS: HEPATITIS C ANTIBODY NEGATIVE (NEGATIVE)
== END 2017-06-18 18:14 | disposition home or self-care (01) | DRG 432 ==
LOC: SUPCPDRO 23:03 → C.ER 23:03 → C.9E 06-15 05:49 → C.3T 06-15 14:03
PROVIDERS: ADMIT Internal Medicine; ATTEND Internal Medicine
DX: K70.10 Alcoholic hepatitis without ascites (principal); K85.20 Alcohol induced acute pancreatitis without necrosis or infection; D68.9 Coagulation defect, unspecified; F10.20 Alcohol dependence, uncomplicated; K52.9 Noninfective gastroenteritis and colitis, unspecified; K82.9 Disease of gallbladder, unspecified; K27.9 Peptic ulcer, site unspecified, unspecified as acute or chronic, without hemorrhage or perforation; F32.9 Major depressive disorder, single episode, unspecified; F41.9 Anxiety disorder, unspecified; F17.210 Nicotine dependence, cigarettes, uncomplicated; E86.0 Dehydration; D69.59 Other secondary thrombocytopenia

== ENCOUNTER 2017-09-17 01:57 | Emergency (ER) | payer BC ==
[2017-09-17 02:06] VITALS: BP 152/108; PULSE 119; RESP 20; TEMP 98.9; O2SAT 94
--- NOTE | 2017-09-17 02:48 | C.PDOC ---
Time Seen by Provider: 09/17/17 02:48 Chief Complaint (Nursing): Substance Abuse Past Medical History Vital Signs: Last Vital Signs Temp 98.9 F 09/17/17 02:03 Pulse 119 H 09/17/17 02:03 Resp 20 09/17/17 02:03 BP 152/108 H 09/17/17 02:03 Pulse Ox 94 L 09/17/17 02:03 - Social History Hx Alcohol Use: Yes (7 glasses of Aidan Maximilian a day for 7days) Hx Substance Use: No - Immunization History Hx Tetanus Toxoid Vaccination: Yes Hx Influenza Vaccination: Yes Hx Pneumococcal Vaccination: No ED Course And Treatment O2 Sat by Pulse Oximetry: 94 Disposition Counseled Patient/Family Regarding: Studies Performed, Diagnosis - Disposition Disposition Time: 02:48
== END 2017-09-17 02:48 | disposition left against medical advice (07) ==
LOC: C.ER 01:57
DX: Z02.89 Encounter for other administrative examinations (principal); F19.10 Other psychoactive substance abuse, uncomplicated